=== PATIENT | female | born 1975 | race Caucasian/White ===

== ENCOUNTER → 2017-01-23 | Outpatient (CLI) | payer BC ==
[~2017-01-23] MED LIST: ADVIN25050 INH; BCPILLS PO; CMBIN INH; DFL100 PO; FLNCV PO; LYSINE PO; METR-163 PO; PHEN-876 PO; PHENYLEPHRINE PO; SNG10 PO; TRAZ50TA35 PO; VALA500T60 PO
== END | disposition home or self-care (01) ==
LOC: C.LABSPEC 14:38
PROVIDERS: ATTEND Obstetrics & Gynecology
DX: Z01.419 Encounter for gynecological examination (general) (routine) without abnormal findings (principal)

== ENCOUNTER → 2017-07-11 | Outpatient (CLI) | payer BC ==
--- NOTE | 2017-07-13 07:45 | MAMMOGRAPHY REPORT ---
BILATERAL DIGITAL SCREENING MAMMOGRAM TOMOSYNTHESIS WITH CAD: 07/11/2017 CLINICAL HISTORY: Routine screening. Patient has no complaints. TECHNIQUE: Breast tomosynthesis in addition to standard 2D mammography was performed. Current study was also evaluated with a Computer Aided Detection (CAD) system. COMPARISON: Comparison is made to exams dated: 04/08/2016 mammogram and 11/27/2014 mammogram - [facility]. BREAST COMPOSITION: The tissue of both breasts is extremely dense, which lowers the sensitivity of m ammography. FINDINGS: There is a faint cluster of punctate and amorphous microcalcifications in the upper outer middle one third of the left breast, for which additional spot magnification views are recommended. A linear scar marker overlies the anterior right breast. There are multiple bilateral circumscribed masses scattered in both breasts, which is a typically benign mammographic pattern. No suspicious sp iculated or irregular mass, focal area of architectural distortion or obvious new asymmetry is seen. IMPRESSION: ACR BI-RADS CATEGORY 0: INCOMPLETE EVALUATION: NEED ADDITIONAL IMAGING EVALUATION The faint cluster of punctate and amorphous microcalcifications in the left breast needs additional i maging evaluation. The patient will be called to schedule an appointment. Approximately 10% of breast cancers are not detected with mammography. A negative mammographic report should not delay biopsy if a clinically suggestive mass is present. Svitlana Richardson M.D. ay/:07/12/2017 09:54:26 Electromedical Equipment Repairer: Harmony Mckeon, [facility] letter sent: Addl Imaging 0 BI-RADS Code: ACR BI-RADS Category 0: Incomplete Evaluation: Need Additional Imaging Evaluation
== END | disposition home or self-care (01) ==
LOC: C.MAMM 14:47
PROVIDERS: ATTEND Obstetrics & Gynecology
DX: Z12.31 Encounter for screening mammogram for malignant neoplasm of breast (principal); R92.0 Mammographic microcalcification found on diagnostic imaging of breast

== ENCOUNTER → 2017-09-21 | Outpatient (CLI) | payer BC, OTHER ==
[2017-09-21 11:41] LABS: URINE APPEARANCE TURBID (CLEAR); URINE BILIRUBIN NEG (NEG); URINE COLOR DK YELLOW; URINE EPITHELIAL CELL AUTO >30 /lpf (0-5); URINE NITRITE NEG (NEG); URINE SPECIFIC GRAVITY 1.028 (1.000-1.030); UROBILINOGEN NEG (NEG)
[2017-09-21 11:42] LABS: MANUAL MICROSCOPIC REQUIRED? NO; REVIEW REQ? YES
== END | disposition home or self-care (01) ==
LOC: C.LABSPEC 10:58
PROVIDERS: ATTEND Physician Assistant
DX: R39.9 Unspecified symptoms and signs involving the genitourinary system (principal); N89.8 Other specified noninflammatory disorders of vagina

== ENCOUNTER → 2017-10-27 | Outpatient (CLI) | payer BC ==
--- NOTE | 2017-10-27 10:36 | DIAGNOSTIC IMAGING REPORT ---
LEFT KNEE 2 VIEWS HISTORY: M25.562 Knee pain, [id number] History of [id number] COMPARISON: None. FINDINGS: There is no fracture or dislocation. Soft tissues are unremarkable. No significant knee effusion. Cartilage spaces are maintained for age. IMPRESSION: No fractures. Electronically signed by: Jeremias Hobbs M.D. 10/27/2017 10:35 AM Dictated Date/Time: 10/27/2017 10:31 AM
--- NOTE | 2017-10-27 10:40 | DIAGNOSTIC IMAGING REPORT ---
TWO VIEW CHEST CLINICAL HISTORY: Wheezing. FINDINGS: PA and lateral chest radiographs are obtained. No prior studies are available for comparison at the time of dictation. The cardiomediastinal silhouette is unremarkable. The lungs and pleural spaces are clear. There is no pneumothorax. The bony thorax appears intact. IMPRESSION: No active disease in the chest. Electronically signed by: Moises Donohue M.D. 10/27/2017 10:39 AM Dictated Date/Time: 10/27/2017 10:39 AM
[2017-10-27 12:34] LABS: BASO % 0.3 %; BASO ABS # 0.02 K/uL (0-0.2); EOS ABS # 0.08 K/uL (0-0.5); HEMATOCRIT 39.8 % (37-47); HEMOGLOBIN 13.4 g/dL (12.0-16.0); IG# 0.03 K/uL (0.00-0.02); LYMPH % 24.5 %; LYMPH ABS # 1.92 K/uL (1.2-3.4); MEAN CORPUSCULAR HGB CONC 33.7 g/dl (32-36); MEAN PLATELET VOLUME 11.2 fL (7.4-10.4); MONO % 8.3 %; MONO ABS # 0.65 K/uL (0.11-0.59); NEUT % 65.5 %; NEUT ABS # 5.15 K/uL (1.4-6.5); PLATELET COUNT 360 K/uL (130-400); RED CELL DISTRIBUTION WIDTH CV 13.6 % (11.5-14.5); RED CELL DISTRIBUTION WIDTH SD 47.2 fL (36.4-46.3); WHITE BLOOD COUNT 7.85 K/uL (4.8-10.8)
[2017-10-27 12:40] LABS: CREATININE 0.78 mg/dl (0.60-1.20)
[2017-10-31 04:25] LABS: ANA SCREEN TC 249X POSITIVE (NEGATIVE); ANTI-SS-A <1.0 NEG AI (<1.0 NEG); ANTI-SS-B <1.0 NEG AI (<1.0 NEG); COMPLEMENT C3 TC 44859W 155 MG/DL (90-180); COMPLEMENT C4 TC 44982E 40 MG/DL (16-47)
== END | disposition home or self-care (01) ==
LOC: C.RAD1850 10:10
PROVIDERS: ATTEND Internal Medicine Rheumatology
DX: M25.562 Pain in left knee (principal); Z87.898 Personal history of other specified conditions; M35.9 Systemic involvement of connective tissue, unspecified; Q76 Congenital malformations of spine and bony thorax

== ENCOUNTER → 2018-02-09 | Outpatient (CLI) | payer BC, OTHER ==
--- NOTE | 2018-02-09 15:14 | MAMMOGRAPHY REPORT ---
UNILATERAL LEFT DIGITAL DIAGNOSTIC MAMMOGRAM TOMOSYNTHESIS WITH CAD: 02/09/2018 CLINICAL HISTORY: History of stereotactic biopsy of left breast calcifications July 2017 which faroese elded fibrocystic change with usual ductal hyperplasia and rare calcifications. The patient presents for short interval follow-up. She still notes some tenderness in the left breast since her biopsy. TECHNIQUE: Breast tomosynthesis in addition to standard 2D mammography was performed. Current study was also evaluated with a Computer Aided Detection (CAD) system. Left CC and MLO 2D and tomosynthesi s images and spot magnification left CC and ML views were obtained. COMPARISON: Comparison is made to exams dated: 08/01/2017 mammogram, 08/01/2017 stereotactic biopsy, 1 mammogram, 07/11/2017 mammogram - [facility], 04/08/2016 mammogram, and 11/27/2014 mammogram - [facility]. BREAST COMPOSITION: The tissue of the left breast is extremely dense, which lowers the sensitivity o f mammography. FINDINGS: A biopsy clip is noted within the left upper outer quadrant at the site of prior benign joel reotactic biopsy. Spot magnification views of this region demonstrate a few residual calcifications posterior to the biopsy clip although the majority of the sampled calcifications are no longer eviden t indicating adequate sampling. Additionally, the calcifications showed layering on the spot magnifi cation lateral view performed on July 2017, also confirming that the calcifications are benign an d represent milk of calcium. No new or increasing calcifications are noted in the left breast. The remainder of the left breast is stable compared to prior exams, without suspicious masses, calcificat ions, or areas of architectural distortion noted. IMPRESSION: ACR BI-RADS CATEGORY 2: BENIGN There is no mammographic evidence of malignancy in the left breast. Return to annual mammogram screen ing schedule is recommended, due June 2018. the patient has been verbally notified of the results. Approximately 10% of breast cancers are not detected with mammography. A negative mammographic report should not delay biopsy if a clinically suggestive mass is present. Lorie Yung M.D. /:02/09/2018 10:27:44 Passenger Locomotive Engineer: Harmony Mckeon, [facility] letter sent: Normal 1/2 BI-RADS Code: ACR BI-RADS Category 2: Benign
== END | disposition home or self-care (01) ==
LOC: C.MAMM 09:41
PROVIDERS: ATTEND Obstetrics & Gynecology
DX: Z09 Encounter for follow-up examination after completed treatment for conditions other than malignant neoplasm (principal)